=== PATIENT | female | born 1935 | race Caucasian/White ===

== ENCOUNTER 2023-12-02 14:10 | Day surgery (SDC) | payer MEDICARE, SELFPAY ==
[2023-12-02] VITALS (10 sets, daily range): BP systolic 152–170; BP diastolic 56–77; BMI 29.3
--- NOTE | 2023-12-02 09:56 | W.PN.CARDCBS ---
Today's Communication / Plan
-
LHC today
Impression / Plan
-
This is a summary of cardiology consultation, see scanned consult
PCP: Bowen Murrell,
Primary employment specialist: Dalton Saini MD (last seen in 2020)
87-year-old female with past medical history of arthritis, GERD, aortic stenosis, prior tobacco (40 pack years quit 2000 with CVA), chronic anticoagulation on xarelto since remote CVA with residual left-sided weakness, hyperlipidemia, hypertension,
lives independently at a facility with walker/wheelchair. She reported chest pain and shortness of breath at her residence on 11/20 prompting EMS call. Initial ECG showed afib with HR 142 bpm, RBBB, LAFB with inferior lateral ST elevations and
anterior ST depressions. Patient then reportedly went into cardiac arrest with VT, ROSC was obtained in the field, it is reported that pulses were lost and then reachieved. There was an estimated 20 to 25 minutes of CPR. She was intubated. She was
started on an epinephrine infusion in the ER. In the ER ECG showed afib with [address] depressions anteriorly and PVCs, IVCD. She did have a run of VT in ER and was given a amidoarone bolus x 1. She was also given Bicarb bolus for initial ABG
6.98/60/76/14.1. Repeat ABG 7.22/42/101/17.2. Head CT shows chronic R cerebellar infarct. Stable calcified .2 cm meningioma R posterior fossa. Repeat ECG on arrival to ICU showed SR with PACs, IVCD, improving ST depressions anteriorly.
Chest/abd/pelvis CT without contrast showed: Bilateral large pleural effusions. Bibasilar atelectasis. Alveolar consolidation within the right upper lobe with lesser findings at the left upper lobe. Right anterior third through seventh rib
fractures. Per her daughter, pt had been complaining of intermittent epigastric discomfort over the last week but daughter thought is sounded like GERD due to pt taking more NSAIDS for arthritis. She is transferred today for [facility] with Dr. Mckeon.
11/22/23 ECHO: EF 40%, apical inf septum, apical inferior wall, and apex HK, sev dil LA, mild dil RA, mod-severe p/m 60.7/33.9mmHg, ANYA 1.12cm2, AoV DI - 0.27, mild MAC
11/30/23 Limited ECHO - EF 50-55%
Impression:
VT Cardiac arrest
NSTEMI peak troponin 4528
Acute on chronic HFrEF 40%, repeat 11/29 Echo with improved EF 50-55%
Afib with RVR ? new diagnosis
Moderate -severe Aortic stenosis
bilateral pleural effusion - L thoracentesis 11/21 - CT removed 11/22
acute respiratory failure with hypoxia - Intubated 11/20, Extubated 11/21
Pneumonia - treated with ceftriaxone
Acute on chronic Anemia - hbg dropped to 6.1 transfuse 2u baseline Hbg 9-10
GAB Cr peaked at 1.93, today 0.87
CVA on chronic OAC Xarelto, L sided weakness
GERD
Arthritis R shoulder
Rib fractures from CPR -
PMR
HTN
HLD
Plan:
Transferred today for [facility] today +/- PCI
Initial ECGs pre arrest with afib with RVR and RBBB with some suggestion of inferolateral ST elevations and anterior ST depressions
Post arrest initial ECG with afib with anterior ST depressions
ECG improved from admission- denies cp
Troponin peaked at 4528 and downtrend
Telem with SR currently without further VT
D/w Dr. Jacksno on admission- as patient did not currently meet STEMI criteria decision was made to treat medically for now until medically optimized
Off pressors since 1 am 11/22/23
Extubated to BIPAP 11/22/23, currently on 2L nc
Mental status appears close to baseline
Keep K 4 Mg 2
Asa, plavix, high intensity statin
Heparin was put on hold 11/23/23 for Hgb 6.1- Now 9.9 after transfusions.
? unclear source of anemia- ? multifactorial with trauma losses, dilutional, some GI- GI consulted as pt would likely need to continue on APT and possibly home xarelto (prior CVA)
PPI BID, GI signed off outpt w/u for anemia
GAB/Urinary retention - Cr back to baseline, FC in place d/t continue retention and multiple st cath, t/c void trials when able
WBC remains elevated on low dose steroids. Due to persistent leukocytosis repeat blood cultures were sent and are negative to date, UA neg
CXR yesterday with worsening infiltrate. IV lasix given. good Diuresis. repeat CXR 11/30 small b/l pleural effusions
Deconditioning - PT/OT to eval for SNF at d/c
Progress Note - Rack Puncher
Subjective
Date of Service: December 02, 2023
no cp, sob, mod pain right side 2nd to rib fractures
Physical Exam
Physical Exam
Mild distress, lethargic
S1, S2, RRR, III/ MARCO ANTONIO
bibailsar rales, exp wheeze
SNTND bsx4
LLE +2 edema (chronic)
LUE/LLE weakness chronic
multiple ecchymotic areas UE b/l and chest
--- NOTE | 2023-12-02 14:33 | PTCARENOTE ---
Pt arrived with bibasilar rales. Pulse 89% on room air. Pt became SOB while turning on right side. 2L NC applied. Catrina Marshall LOIN TRIMMER at pt bedside. Pt states relief once turned onto her back and oxygen in place. Pulse ox 95% on 2L NC. No further treatment
ordered at this time. Will continue to monitor.
[2023-12-02 15:59] LABS: ACT-LR - POC 229 Seconds (116-155)
--- NOTE | 2023-12-02 16:53 | PTCARENOTE ---
Dr Mckeon at pt bedside speaking to pt and pt's daughter. EKG given to Dr Mckeon. No further orders at this time. Will continue to monitor.
--- NOTE | 2023-12-02 16:55 | ITS.CL.ANGIO ---
Dianeticist - Angioplasty
Angioplasty
Procedure Report:
LEFT HEART CATHETERIZATION
Date of Procedure: December 02, 2023
Procedures performed:
1: Coronary angiography
2: Left ventricular hemodynamic assessment
3: Percutaneous coronary intervention of the circumflex first obtuse marginal branch with placement of a 2.5 x 12 mm Xience drug-eluting stent
Primary Care Physician: Dr. Danilo Murrell
Referring acquisitions librarian: Dr. Christophe Bone
INDICATION: The patient is an 87-year-old woman with a past medical history significant for stroke and possibly polymyalgia rheumatica who presented with chest pain and cardiac arrest. Initial EKG was markedly abnormal that showed no clear ST
elevation. She received aggressive ACLS including CPR and intubation with complications of rib fractures. She is now recovered and is referred for coronary angiography postcardiac arrest. Of note, her left ventricular systolic function had nearly
normalized by echocardiography performed yesterday.
ACCESS: The patient was prepped and draped in usual sterile fashion. A 5 Hungarian sheath was placed in the right radial artery using the Seldinger over the wire technique.
HEMODYNAMIC FINDINGS (mmHg):
LV(s/d,EDP): 167/15, 21
Ao(s/d,m): 132/66, 88
Mean aortic valve gradient on pullback: 32 mmHg
ANGIOGRAPHIC FINDINGS:
Single-plane Left Ventriculography in TORRES Projection: Not done.
Coronary Angiography:
Dominance: Right
Left Main: Widely patent, short and large caliber.
Left Anterior Descending: The left anterior descending artery is a medium caliber vessel that has moderate nonobstructive luminal irregularities with normal flow. The LAD gives rise to a high medium caliber first diagonal branch which courses in a
ramus distribution and is widely patent. All vessels have normal distal flow.
Left Circumflex: The left circumflex is a medium caliber nondominant system that gives rise to a high first obtuse marginal branch that is medium caliber. This vessel has a preocclusive 95% proximal stenosis with angiographic appearance of a
culprit ruptured plaque. The second obtuse marginal branch is a larger caliber vessel that has mild luminal irregularities with normal flow.
Right Coronary: The right coronary artery is a large-caliber dominant vessel that has a proximal chronic total occlusion. There are no right to right collaterals. The dominant distal PLV and PDA fills via brisk and well-developed [id number]
collaterals.
Percutaneous Coronary Intervention (PCI): In light of her clinical presentation and the above angiographic findings, I elected to proceed with a PCI of the circumflex OM1 culprit lesion. The patient was pretreated with aspirin and Plavix.
Unfractionated heparin was given. A 5 Hungarian XB 3.0 guiding catheter was used to engage the left main. A Hi-Torque floppy wire was easily advanced across the occlusion and predilation was performed with a 2 oh by 12 mm balloon. Next a 2.5 x 12 mm
Xience drug-eluting stent was deployed at 12 lauren. The stent was postdilated with a 2.5 x 8 mm noncompliant balloon at 16 lauren. This was done in a distal to proximal fashion taking care to stay within the stented margins.
FINAL RESULT: 0% in-stent residual stenosis with an excellent angiographic result and MYRANDA-3 flow in all vessels.
Fluoroscopy Time (min): 8.5
Radiation Dose (mGy): 672
DAP (Gy.cm2): 39
Closure device: None. A TR band was applied for hemostasis at the right wrist.
Complications: None.
ASSESSMENT:
1: Successful PCI of the culprit OM1 lesion with placement of drug-eluting stent as described above.
2: No residual obstructive left coronary disease. Chronic total occlusion of the right coronary artery which is well collateralized from the left.
3: Moderate aortic stenosis.
CONCLUSIONS and RECOMMENDATIONS:
1: Routine post GITA and non-STEMI medical therapy with dual antiplatelet therapy with aspirin and Plavix uninterrupted for a year and aspirin 81 mg daily indefinitely.
2: Close clinical follow-up.
Casandra Mckeon M.D.
Copy to: Dr. Danilo Murrell
[2023-12-02] MEDS: TYLENOL 650 MG PO (17:23)
[2023-12-02] MEDS: NSS 1000 IV (17:43)
--- NOTE | 2023-12-02 18:04 | PTCARENOTE ---
Dr Mckeon at pt bedside again speaking to pt and pt's daughter. Pictures given by Dr Mckeon.
[2023-12-06 13:29] LABS: ACT-LR - POC > 397 Seconds (116-155)
== END 2023-12-02 18:30 | disposition short-term general hospital (02) ==
LOC: CATH 14:10
PROVIDERS: ATTENDING PHYSICIAN Internal Medicine Interventional Cardiology; REFERRING PHYSICIAN Family Medicine
DX: I25.10 Atherosclerotic heart disease of native coronary artery without angina pectoris (principal); I21.4 Non-ST elevation (NSTEMI) myocardial infarction; Z86.73 Personal history of transient ischemic attack (TIA), and cerebral infarction without residual deficits; M35.3 Polymyalgia rheumatica; Z86.74 Personal history of sudden cardiac arrest; Z87.81 Personal history of (healed) traumatic fracture; I35.0 Nonrheumatic aortic (valve) stenosis; Z87.891 Personal history of nicotine dependence; Z79.01 Long term (current) use of anticoagulants; I10 Essential (primary) hypertension; E78.5 Hyperlipidemia, unspecified; Z79.82 Long term (current) use of aspirin; Z79.02 Long term (current) use of antithrombotics/antiplatelets; I25.82 Chronic total occlusion of coronary artery
CPT/HCPCS: 85347; 93005; 93458; C1725; C1769; C1874; C1894; C9600; Q9967